=== PATIENT | male | born 1945 | race Caucasian/White ===

== ENCOUNTER 2016-05-30 05:09 | Day surgery (SDC) | payer MEDICARE ==
[~2016-05-30 05:09] MED LIST: ALEVE220 MG PO; AMB10 PO; AMBIEN CR12.5 MG PO; ASAB PO; CEFADROXIL1 GM PO; CENTRUM PO; CENTRUM TAB1 TAB PO; CLEOCIN300 MG PO; FORTAMET500 MG PO; GLUCPH PO; JANUVIA50 PO; LIPITOR10 PO; METHOC500B PO; MULTIPLE VIT PO; NEUR100 PO; PERCOCET1 TA4 PO; PLAVIX PO; PRIN20 PO; TRILIPIX135 MG PO; ZESTRIL20 MG PO
== END 2016-05-30 07:56 | disposition home or self-care (01) ==
LOC: SDC 05:09
PROVIDERS: Orthopaedic Surgery Orthopaedic Surgery of the Spine
PROC: 3E0R3BZ Introduction of Anesthetic Agent into Spinal Canal, Percutaneous Approach (ICD-10-PCS; 2016-05-30)
PROC: 3E0R33Z Introduction of Anti-inflammatory into Spinal Canal, Percutaneous Approach (ICD-10-PCS; 2016-05-30)
PROC: 3E0R3BZ Introduction of Anesthetic Agent into Spinal Canal, Percutaneous Approach (ICD-10-PCS; 2016-05-30)
PROC: B01BYZZ Fluoroscopy of Spinal Cord using Other Contrast (ICD-10-PCS; 2016-05-30)
PROC: 3E0R33Z Introduction of Anti-inflammatory into Spinal Canal, Percutaneous Approach (ICD-10-PCS; principal; 2016-05-30 07:00)
DX: M54.17 Radiculopathy, lumbosacral region (principal); E11.9 Type 2 diabetes mellitus without complications; I10 Essential (primary) hypertension; E78.00 Pure hypercholesterolemia, unspecified; Z98.890 Other specified postprocedural states
CPT/HCPCS: 82962; J2250; J3010; Q9967